=== PATIENT | female | born 1980 | race Two or more races ===

== ENCOUNTER 2024-05-24 10:16 | Emergency (ER) | payer MEDICAID, SELFPAY ==
[2024-05-24 10:25] VITALS: BP 129/82; PULSE 69; RESP 16; TEMP 36.6; O2SAT 100; BMI 28.3
--- NOTE | 2024-05-24 10:32 | XR_ITS ---
Examination: CT brain head without contrast. 2-D sagittal coronal reconstructions Date and time of exam:May 24, 2024 1059 hrs. Indications: Headaches blurred vision today CTDI: vol (mGy):48.6 DLP: (mGycm):919 Technique: Multiple CT axial sections of the brain have been obtained, 5 mm slice thickness. Contrast has not been administered. 2-D sagittal, coronal reconstructions have been obtained Low dose protocols were performed. One or more of the following dose reduction techniques were used; automated exposure control, adjustment of the mA and/or KV according to patient size, use of iterative reconstruction technique. Findings: No significant ventricular enlargement. Intra-axial or extra-axial hemorrhage density is not seen. No mass effect or midline shift Basal cisterns are not remarkable. Fourth ventricle is midline. Cranial vault intact. Impression: Negative for acute hemorrhage, mass effect or midline shift Advise clinical correlation follow-up accordingly
--- NOTE | 2024-05-24 10:32 | EKG_ITS ---
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
--- NOTE | 2024-05-24 10:32 | XR_ITS ---
Examination: PA lateral chest 2 views Technique: Upright PA lateral chest 2 views Exam date and time: May 24, 2024 1052 hrs. Indications: Blurred vision headaches today Findings: Normal heart size. Lungs are clear. The osseous structures are intact Impression: No active disease
--- NOTE | 2024-05-24 10:32 | PD.EDRME ---
Rapid Medical Screening Exam RME Arrival date/time: 05/24/24 10:16 Patient presents the emergency department complains of headache and dizziness Chief Complaint: Headache Time Seen by Provider: 05/24/24 10:19 Vital signs: Vital Signs Temperature 97.9 F 05/24/24 10:25 Pulse Rate 69 05/24/24 10:25 Respiratory Rate 16 05/24/24 10:25 Blood Pressure 129/82 05/24/24 10:25 Pulse Oximetry (%) 100 05/24/24 10:25 Oxygen Delivery Method Room Air 05/24/24 10:25
[2024-05-24 11:23] LABS: Basophils % (Auto) 0 % (0-2.5); Eosinophils # (Auto) 0.3 Thou/mm3 (0.0-0.5); Eosinophils % (Auto) 4 % (0-10); Hematocrit 42.3 % (36.0-46.0); Hemoglobin 14.6 g/dL (12.0-16.0); Immature Granulocytes % (Auto) 0 % (0-0); Immature Granulocytes Auto 0.02 Thou/mm3 (0.00-0.00); Lymphocytes # (Auto) 2.1 Thou/mm3 (1.0-4.8); Lymphocytes % (Auto) 31 % (10-50); Mean Corpuscular HGB Conc 34.5 g/dl (31.0-37.0); Mean Corpuscular Hemoglobin 31.9 pg (25.0-35.0); Mean Corpuscular Volume 92 fL (80-100); Monocytes # (Auto) 0.3 Thou/mm3 (0.0-0.8); Monocytes % (Auto) 4 % (0-12); Neutrophils % (Auto) 59 % (37-80); Nucleated Red Blood Cell % 0 /100 WBC (0); Platelet Count 303 Thou/mm3 (140-440); RDW Standard Deviation 40.3 fL (36.4-46.3); Red Blood Count 4.58 Miln/mm3 (4.00-5.20); White Blood Count 6.8 Thou/mm3 (3.6-11.0)
[2024-05-24 11:38] LABS: HCG,Qualitative Serum Negative
[2024-05-24 11:43] LABS: Alanine Aminotransferase 15 U/L (10-49); Albumin, Serum 4.3 gm/dL (3.5-5.0); Alkaline Phosphatase 52 U/L (46-116); Anion Gap 6 (7-16); Aspartate Amino Transferase 13 U/L (0-34); BUN/Creatinine Ratio 11 Ratio (12-20); Bilirubin,Total 0.5 mg/dL (0.3-1.2); Blood Urea Nitrogen 10 mg/dL (9-23); Calcium 9.4 mg/dL (8.3-10.6); Calcium (Corrected) 9.4 mg/dL (8.5-10.1); Carbon Dioxide 28.8 mMol/L (20.0-31.0); Chloride 104 mMol/L (98-107); Creatinine (Component) 0.9 mg/dL (0.6-1.3); Estimated Creatinine Clearance 83.6 mL/min (>60); Globulin 2.2 gm/dL (2.3-3.5); Glucose 108 mg/dL (74-106); Osmolality,Calculated 277 (275-295); Potassium 4.5 mMol/L (3.4-5.1); Sodium 139 mMol/L (136-145); Total Protein 6.5 gm/dL (5.7-8.2); Troponin I < 0.002 ng/mL (0.0-0.045); eGFR > 60 See Note
--- NOTE | 2024-05-24 11:49 | EDNOTE_ITS ---
<Statement entered by Jeannie Dean MD - 05/24/24 16:22> As co-signing physician, I was present and available for consult prn. I concur with the plan and care as documented by the midlevel provider. ED General RME/HPI General Chief complaint: Headache Stated complaint: TAYLOR, BLURRY VISION, DIZZINESS Time Seen by Provider: 05/24/24 10:19 Arrival date/time: 05/24/24 10:16 CC: Headache blurred vision sore throat difficulty swallowing nausea HPI ongoing for the past 2 days denies any nausea chest pain shortness of breath or difficulty breathing. Patient is awake alert oriented with stable vital signs. Appears not in any acute distress. RME / HPI RME / HPI narrative: 05/24/24 10:16 Patient presents the emergency department complains of headache and dizziness Related Data Home Medications ?Medication ?Instructions ?Recorded ?Confirmed Cholecalciferol * (VITAMIN D3 *) 3,000 unit PO QDAY #0 tabs 12/03/14 Citalopram Hydrobromide * (CELEXA 20 mg PO QDAY #0 tabs 12/03/14 *) lorazepam 0.5 mg tablet 0.5 mg PO BID #0 tabs 12/03/14 estradiol 0.06 mg/24 hr weekly 1 patch TOP Q7D #0 ea 05/03/15 transdermal patch (Climara) progesterone micronized 100 mg 100 mg PO QDAY #0 caps 05/03/15 capsule (Prometrium) Previous Rx's ?Medication ?Instructions ?Recorded norvasc 2.5mg 1 tab PO daily #30 tabs 05/03/15 Hydrocodone/Acetaminophen * (NORCO 1 tab PO BID PRN PAIN #10 tabs 08/20/15 5/325 *) ibuprofen 600 mg tablet 600 mg PO Q8HR PRN PAIN #30 tabs 02/29/16 ibuprofen 600 mg tablet 600 mg PO Q6HR PRN PAIN #25 tabs 02/18/17 naproxen 375 mg tablet 375 mg PO BIDWM PRN pain #25 tabs 05/23/17 levofloxacin 500 mg tablet 500 mg PO QDAY #6 tabs 08/10/22 cephalexin 500 mg capsule 500 mg PO QID #40 caps 12/19/22 metoclopramide HCl 10 mg tablet 10 mg PO Q6H PRN nausea and 10/25/23 (Reglan) vomiting #14 tabs Allergies Allergy/AdvReac Type Severity Reaction Status Date / Time lisinopril Allergy Unknown Verified 10/25/23 14:19 Review of Systems Review of Systems Narrative Review of Systems: GEN: No fever, no chills, no weight loss EYES: No discharge, no visual changes, no pain HEENT: No ear pain, no congestion, + sore throat PULM: No shortness of breath, no cough, no congestion CV: No chest pain, no dyspnea on exertion, no palpitations GI: No nausea, no vomiting, no diarrhea, no pain, no constipation : No frequency, no urgency, no dysuria MUSC/SKEL: No joint pain, no back pain SKIN: No rash PSYCH: No hallucinations, no depression HEME/LYMPH: No easy bleeding or bruising tendencies NEURO: No weakness, + headache Past Medical History Past Medical History CARDIAC: Positive Hypercholesterolemia and Hypertension; Negative Congestive Heart Failure RESPIRATORY: Negative Chronic Obstructive Pulmonary Disease (COPD) GASTROINTESTINAL: Positive Gall Bladder Disease GENITOURINARY: Negative Renal Disease REPRODUCTIVE: Positive Previous Pregnancies MUSCULOSKELETAL: Positive Carpal Tunnel Syndrome and Fibromyalgia ENDOCRINE: Positive Diabetes Mellitus Type 2 and Systemic Lupus Erythematosus; Negative Diabetes Mellitus Type 1 PSYCHO/SOCIAL: Positive Bipolar Disorder and Depression OTHER HISTORY: Positive Autoimmune Disease, Blood Transfusions and Anesthesia Reactions (lupus) Surgical History SURGICAL: Positive Abdominal Surgery, Hysterectomy, Tubal Ligation and Section Social History SMOKING STATUS: Never smoker SUBSTANCE USE: does not use ED Exam Narrative Physical exam: [General: Not in any acute distress Head normocephalic HEENT: Eyes pupils are PERRLA EOMs are intact no injected conjunctiva nose no rhinorrhea mouth pink moist membranes uvula is midline swallow symmetrical phonation is normal all the subsystems of HEENT within acceptable limits Neck is supple nontender Chest equal chest rise nontender to palpation Respiratory: Clear to auscultation no wheezes crackles or rubs CV: Rate rhythm is regular no murmurs rubs or clicks Abdomen is soft nontender no masses positive bowel sounds all 4 quadrants Back: No CVA tenderness no spinous process tenderness from cervical spine thoracic and lumbar spine Skin: Intact no petechiae rash induration ulceration or crepitus Extremities: Moving all extremity against resistance cap refill less than 2 seconds neurosensory intact Neuro: Awake alert oriented x3 Glascow coma 15 no focal deficits] Course Quality Measures none Orders Category Date Time Status Bedside Blood Glucose NOW Care 05/24/24 10:28 Active Bedside Influenza A&B Antigen Test NOW Care 05/24/24 11:53 Active EKG (ED ONLY) *Do not use* NOW Care 05/24/24 10:32 Completed Saline [Insert IV] NOW Care 05/24/24 11:[address] head/brain wo con Stat Exams 05/24/24 10:32 Completed EKG (ED Only) Stat Exams 05/24/24 10:32 Ordered XR chest 2V Stat Exams 05/24/24 10:32 Completed CBC Stat Lab 05/24/24 11:10 Completed Comprehensive Metabolic Panel Stat Lab 05/24/24 11:10 Completed Drug Screen,Urine Stat Lab 05/24/24 11:21 Completed HCG,Qualitative Serum Stat Lab 05/24/24 11:10 Completed Troponin I Stat Lab 05/24/24 11:10 Completed Ketorolac Inj [Toradol Inj] Med 05/24/24 11:52 Discontinued 15 mg IVP X1 ONE Sodium Chloride 0.9% 500 ml [Ns] 500 ml Med 05/24/24 11:53 Discontinued IV 999 mls/hr Vital Signs Vital signs: Vital Signs Temperature 97.9 F 05/24/24 10:25 Pulse Rate 69 05/24/24 10:25 Respiratory Rate 16 05/24/24 10:25 Blood Pressure 129/82 05/24/24 10:25 Pulse Oximetry (%) 100 05/24/24 10:25 Oxygen Delivery Method Room Air 05/24/24 10:[address] [facility] Patient data External records reviewed:: [facility] previous records Clinical information provided by:: patient Social determinants that could affect healthcare access:: none Patient has the following chronic illnesses:: Diabetic How is presenting disease/condition affected by chronic disease/condition?: u neffected by Evaluation data The following diagnostics were reviewed and interpreted by me:: lab results and radiology exam(s) Lab and/or radiology exams considered but not ordered:: CT of the head is interpreted by me read by radiologist negative for any acute finding CMP shows no acute electrolyte imbalances renal impairment transaminitis or T. bili elevation CBC shows no acute leukocytosis anemia thrombocytopenia. Troponin is negative BMP is negative EKG performed at 1054 shows a ventricular rate of 72 FL interval 147 QRS of 9 5 QTc of 424 this sinus rhythm. He is positive for cocaine. Interpretation Summary: At 1400 patient states his symptoms have improved but not resolved. Patient was informed that she is positive for cocaine, patient's must have been on my money . Will discharge the patient home for follow-up with her primary care provider. Medications Medications considered but not ordered:: None Medication administrations:: Medication Administration History Discontinued Medications Sodium Chloride (Ns) 500 mls @ 999 mls/hr IV .Q31M ONE Stop: 05/24/24 12:23 Last Admin: 05/24/24 12:27 Dose: 999 mls/hr Documented By: ED Ketorolac Tromethamine (Ketorolac Inj 30 Mg/Ml Vial) 15 mg IVP X1 ONE Stop: 05/24/24 11:53 Last Admin: 05/24/24 12:28 Dose: 15 mg Documented By: ED None Consultations Consultation(s) initiated? (list below): No Diagnosis Differential Diagnosis ED Complaint MDM: Intercerebral hemorrhage complex migraine tension headache Most likely diagnosis given after review of the tests above:: Headache cocaine use Admission Indicated Admission indicated?: not indicated Explain why admission is indicated or not indicated:: Stable for outpatient follow-up Admission Request Was there a request for admission?: No Disposition Plan Disposition Plan: Discharge Discharge Attestation Discharge Attestation: The patient and all family members were given an opportunity to ask questions and understood the discharge instructions. Discharge instructions specifically effects, indications for sooner follow up or return to the emergency department, and the expected course of current diagnosis. Patient condition: Stable Medical Decision Making Differential Diagnosis Differential Diagnosis: Intercerebral hemorrhage complex migraine tension headache Lab Data 05/24/24 11:10 05/24/24 11:10 Labs: Lab Results 05/24/24 05/24/24 Range/Units 11:10 11:21 WBC 6.8 (3.6-11.0) Thou/mm3 RBC 4.58 (4.00-5.20) Miln/mm3 Hgb 14.6 (12.0-16.0) g/dL Hct 42.3 (36.0-46.0) % MCV 92 (80-100) fL MCH 31.9 (25.0-35.0) pg MCHC 34.5 (31.0-37.0) g/dl RDW Std Deviation 40.3 (36.4-46.3) fL Plt Count 303 (140-440) Thou/mm3 Neut % (Auto) 59 (37-80) % Lymph % (Auto) 31 (10-50) % [place] % (Auto) 4 (0-12) % Eos % (Auto) 4 (0-10) % Baso % (Auto) 0 (0-2.5) % Neut # (Auto) 4.0 (1.8-7.7) Thou/mm3 Lymph # (Auto) 2.1 (1.0-4.8) Thou/mm3 [place] # (Auto) 0.3 (0.0-0.8) Thou/mm3 Eos # (Auto) 0.3 (0.0-0.5) Thou/mm3 Baso # (Auto) 0.0 (0.0-0.2) Thou/mm3 Immature Gran # (Auto) 0.02 H (0.00-0.00) Thou/mm3 Absolute Nucleated RBC 0.00 (0.00-0.00) Thou/mm3 Immature Gran % 0 (0-0) % Nucleated RBC % 0 (0) /100 WBC Sodium 139 (136-145) mMol/L Potassium 4.5 (3.4-5.1) mMol/L Chloride 104 (98-107) mMol/L Carbon Dioxide 28.8 (20.0-31.0) mMol/L Anion Gap 6 L (7-16) BUN 10 (9-23) mg/dL Creatinine 0.9 (0.6-1.3) mg/dL Estim Creat Clear Calc 83.6 (>60) mL/min eGFR > 60 (60 - ) See Note BUN/Creatinine Ratio 11 L (12-20) Ratio Glucose 108 H (74-106) mg/dL Calculated Osmolality 277 (275-295) Calcium 9.4 (8.3-10.6) mg/dL Corrected Calcium 9.4 (8.5-10.1) mg/dL Total Bilirubin 0.5 (0.3-1.2) mg/dL AST 13 (0-34) U/L ALT 15 (10-49) U/L Alkaline Phosphatase 52 (46-116) U/L Troponin I < 0.002 (0.0-0.045) ng/mL Total Protein 6.5 (5.7-8.2) gm/dL Albumin 4.3 (3.5-5.0) gm/dL Globulin 2.2 L (2.3-3.5) gm/dL Albumin/Globulin Ratio 2.0 (1.2-2.2) HCG, Qual Negative Urine Opiates Screen Negative (Negative) Urine Fentanyl Screen Negative (Negative) Ur Barbiturates Screen Negative (Negative) U Amphetamin/Meth Scrn Negative (Negative) U Benzodiazepines Scrn Negative (Negative) U Cocaine Metab Screen Positive A (Negative) U Marijuana (THC) Screen Negative (Negative) Discharge Plan Plan Patient Disposition: HOME (Self Care) Patient condition on transfer: Stable Prescriptions/Referrals Prescriptions/Med Rec: No Action lorazepam 0.5 MG tablet 0.5 mg PO BID Qty: 0 Cholecalciferol * (VITAMIN D3 *) 3 000 tablet 3,000 unit PO QDAY Qty: 0 Citalopram Hydrobromide * (CELEXA *) 20 MG tablet 20 mg PO QDAY Qty: 0 progesterone micronized [Prometrium] 100 MG capsule 100 mg PO QDAY Qty: 0 estradiol [Climara] 1 PATCH.WK patch weekly 1 patch TOP Q7D Qty: 0 norvasc 2.5mg 1 tab PO daily Qty: 30 0RF Hydrocodone/Acetaminophen * (NORCO 5/325 *) 1 TAB tablet 1 tab PO BID PRN (Reason: PAIN) Qty: 10 0RF Rx Instructions: FOR PAIN ibuprofen 600 MG tablet 600 mg PO Q8HR PRN (Reason: PAIN) Qty: 30 0RF ibuprofen 600 MG tablet 600 mg PO Q6HR PRN (Reason: PAIN) Qty: 25 0RF naproxen 375 MG tablet 375 mg PO BIDWM PRN (Reason: pain) Qty: 25 0RF cephalexin 500 mg capsule 500 mg PO QID Qty: 40 0RF levofloxacin 500 mg tablet 500 mg PO QDAY Qty: 6 0RF metoclopramide HCl [Reglan] 10 mg tablet 10 mg PO Q6H PRN (Reason: nausea and vomiting) Qty: 14 0RF Referrals: Greg Gonzalez MD [Primary Care Provider] - In 1 week Problem List Clinical Impression: Headache, Cocaine abuse Patient/Caregiver Discharge Instructions Education Materials: Self-Care for Headaches, Cocaine: Understanding Its Effects Print Language: Martiniquais Stand Alone Forms: [employer]ent[employer] Info., Patient Portal Info Letter, Work/School Release PA/ENTRY TABLE OPERATOR Supervising Physician PA/ENTRY TABLE OPERATOR Supervising Physician: Marc Colbert ENP
[2024-05-24 11:52] LABS: Amphetamine/Methamp Scrn,U Negative (Negative); Barbiturate Screen,Urine Negative (Negative); Benzodiazepines Screen,Urine Negative (Negative); Benzoylecgonine Screen, Ur Positive (Negative); Fentanyl Screen,Urine Negative (Negative); Opiate Screen,Urine Negative (Negative); THC Screen,Urine Negative (Negative)
--- NOTE | 2024-05-24 12:07 | PC.NURSE ---
Pt. here from home to bed 7 for TAYLOR X 2 days, pt. states today she started with blurry vision, pt. states she has nausea but no vomiting. Pt. states it is hard for her to swallow. No s/s of distress.
[2024-05-24] MEDS: SODIUM CHLORIDE 0.9% 500 ML 500 ML 999 ML IV (12:27)
[2024-05-24] MEDS: KETOROLAC INJ 30 MG/ML VIAL 15 MG IVP (12:28)
[2024-05-24 12:53] VITALS: BP 129/80; PULSE 76; RESP 18; TEMP 36.7; O2SAT 98
[2024-05-24 14:00] VITALS: BP 130/86; PULSE 87; RESP 18; TEMP 36.8; O2SAT 95
[2024-05-24 14:47] VITALS: BP 138/93; PULSE 93; RESP 17; TEMP 36.9; O2SAT 98
== END 2024-05-24 14:52 | disposition home or self-care (01) ==
PROVIDERS: Nurse Practitioner Primary Care; Emergency Provider Emergency Medicine; PCP Family Medicine
DX: R51.9 Headache, unspecified (principal); F14.10 Cocaine abuse, uncomplicated; H53.8 Other visual disturbances; R94.31 Abnormal electrocardiogram [ECG] [EKG]; E78.00 Pure hypercholesterolemia, unspecified; I10 Essential (primary) hypertension
CPT/HCPCS: 36415; 70450; 71046; 80053; 80307; 84484; 84703; 85025; 93005; 96361; 96374; 99284; J1885; J7040

== ENCOUNTER → 2024-07-27 | Outpatient (CLI) | payer MEDICAID, SELFPAY ==
--- NOTE | 2024-07-27 10:36 | XR_ITS ---
Examination: Sinus series 4 views Technique: Emily Barakat lateral submentovertex sinus series 4 views Exam date and time: July 27, 2024 1109 hours Indications: Sinus pressure and pain months Findings: Opacity involves the frontal ethmoid air cells Mucosal thickening up to 6 mm in the maxillary antra Prominent hypertrophy inferior nasal turbinates Subtle opacity in the sphenoid air cells Normal epiglottis No fluid levels Impression: Chronic pansinusitis
== END | disposition home or self-care (01) ==
LOC: CDIM 10:12
PROVIDERS: Referring Provider Family Medicine; Visit Provider Family Medicine
DX: J32.4 Chronic pansinusitis (principal)
CPT/HCPCS: 70220

== ENCOUNTER 2025-01-01 17:52 | Emergency (ER) | payer MEDICAID, SELFPAY ==
[2025-01-01 17:53] VITALS: BMI 28.3
[2025-01-01 18:09] VITALS: BP 115/75; PULSE 87; RESP 18; TEMP 36.7; O2SAT 100
--- NOTE | 2025-01-01 19:36 | XR_ITS ---
Examination: Foot, left, 3 views Technique: AP, oblique, lateral views foot, 3 views Date and time of exam: January 01, 20252020 hours INDICATIONS: Injury to the foot today, foot pain FINDINGS: No acute fracture No dislocation No foreign body IMPRESSION: No acute fracture
[2025-01-01] MEDS: IBUPROFEN TAB 600 MG TABLET PO (20:41)
--- NOTE | 2025-01-01 21:52 | PD.EDANKLE ---
Lower Extremity Injury RME/HPI General Chief Complaint: Ankle/Foot Injury Stated Complaint: L) FOOT INJURY 02/07 Time Seen by Provider: 01/01/25 18:13 Arrival date/time: 01/01/25 17:52 RME / HPI RME / HPI Narrative: 44-year-old female presents to the ED with a complaint of left foot pain secondary to an injury she sustained at home. Patient states she was removing a bench when it fell over landing on her left foot. She is unable to bear weight. She does have some mild numbness to her toes. Related Data Home Medications ?Medication ?Instructions ?Recorded ?Confirmed Cholecalciferol * (VITAMIN D3 *) 3,000 unit PO QDAY #0 tabs 12/03/14 Citalopram Hydrobromide * (CELEXA 20 mg PO QDAY #0 tabs 12/03/14 *) lorazepam 0.5 mg tablet 0.5 mg PO BID #0 tabs 12/03/14 estradiol 0.06 mg/24 hr weekly 1 patch TOP Q7D #0 ea 05/03/15 transdermal patch (Climara) progesterone micronized 100 mg 100 mg PO QDAY #0 caps 05/03/15 capsule (Prometrium) Previous Rx's ?Medication ?Instructions ?Recorded norvasc 2.5mg 1 tab PO daily #30 tabs 05/03/15 Hydrocodone/Acetaminophen * (NORCO 1 tab PO BID PRN PAIN #10 tabs 08/20/15 5/325 *) ibuprofen 600 mg tablet 600 mg PO Q8HR PRN PAIN #30 tabs 02/29/16 ibuprofen 600 mg tablet 600 mg PO Q6HR PRN PAIN #25 tabs 02/18/17 naproxen 375 mg tablet 375 mg PO BIDWM PRN pain #25 tabs 05/23/17 levofloxacin 500 mg tablet 500 mg PO QDAY #6 tabs 08/10/22 cephalexin 500 mg capsule 500 mg PO QID #40 caps 12/19/22 metoclopramide HCl 10 mg tablet 10 mg PO Q6H PRN nausea and 10/25/23 (Reglan) vomiting #14 tabs meloxicam 7.5 mg tablet 7.5 mg PO QDAY PRN pain #10 tabs 01/01/25 Allergies Allergy/AdvReac Type Severity Reaction Status Date / Time lisinopril Allergy Severe Hives Verified 01/01/25 17:57 Review of Systems Review of Systems Systems Reviewed: All systems reviewed, normal except as documented Past Medical History Past Medical History CARDIAC: Positive Hypercholesterolemia and Hypertension; Negative Congestive Heart Failure RESPIRATORY: Negative Chronic Obstructive Pulmonary Disease (COPD) GASTROINTESTINAL: Positive Gall Bladder Disease GENITOURINARY: Negative Renal Disease REPRODUCTIVE: Positive Previous Pregnancies MUSCULOSKELETAL: Positive Carpal Tunnel Syndrome and Fibromyalgia ENDOCRINE: Positive Diabetes Mellitus Type 2 and Systemic Lupus Erythematosus; Negative Diabetes Mellitus Type 1 PSYCHO/SOCIAL: Positive Bipolar Disorder and Depression OTHER HISTORY: Positive Autoimmune Disease, Blood Transfusions and Anesthesia Reactions (lupus) Surgical History SURGICAL: Positive Abdominal Surgery, Hysterectomy, Tubal Ligation and Section Social History SMOKING STATUS: Never smoker SUBSTANCE USE: does not use ED Exam Narrative Physical exam: A&O, afebrile and non-toxic appearing 44-year-old female, mild acute pain distress. Lung are clear, RRR, Abdomen is non-distended. No tenderness to the tibia or fibula, no tenderness to the medial or lateral malleolus no pain with plantarflexion/dorsiflexion. No pain with inversion/eversion of the left ankle. Positive tenderness, ecchymosis and localized swelling to the proximal metatarsals and tarsal area. CMS intact distally. Moves all other extremities well. Course Course Course Narrative: Patient was given ibuprofen 600 mg p.o. XR left foot reveals no acute fracture or dislocation. Patient's foot and ankle were wrapped with an Ryan wrap and patient was fitted with a pair of crutches. Quality Measures none Orders Category Date Time Status Crutches .NOW Care 01/01/25 21:51 Ordered ryan wrap [Splint / Immobilizer] STAT Care 01/01/25 21:51 Ordered XR foot comp LT min 3V Stat Exams 01/01/25 19:36 Completed Ibuprofen Tab [Motrin Tab] Med 01/01/25 19:36 Discontinued 600 mg PO X1 ONE Vital Signs Vital signs: Vital Signs Temperature 98.1 F 01/01/25 18:09 Pulse Rate 87 01/01/25 18:09 Respiratory Rate 18 01/01/25 18:09 Blood Pressure 115/75 01/01/25 18:09 Pulse Oximetry (%) 100 01/01/25 18:09 Oxygen Delivery Method Room Air 01/01/25 18:09 Extremity Injury, Lower MDM Narrative MDM Narrative:: Symptoms, exam and diagnostic studies are consistent with: Left foot contusion Patient was discharged home in stable condition. Patient/family advised to follow-up with their PCP in 24-48 hours. Encouraged to return to the ED for any new or worsening symptoms. Patient data External records reviewed:: None Clinical information provided by:: patient Social determinants that could affect healthcare access:: none Patient has the following chronic illnesses:: Hypertension How is presenting disease/condition affected by chronic disease/condition?: uneffected by Evaluation data The following diagnostics were reviewed and interpreted by me:: radiology exam(s) Lab and/or radiology exams considered but not ordered:: N/A Interpretation Summary: As noted above Medications / Prescriptions Medications or Prescriptions considered but not ordered:: N/A Medication administrations:: Medication Administration History Discontinued Medications Ibuprofen (Ibuprofen Tab 600 Mg Tablet) 600 mg PO X1 ONE Stop: 01/01/25 19:37 Last Admin: 01/01/25 20:41 Dose: 600 mg Documented By: As noted above Consultations Consultation(s) initiated? (list below): No Diagnosis Extremity Injury, Lower Differential Diagnosis: ankle sprain and strain, fracture of toe, ankle fracture and other (Foot fracture versus foot contusion) Most likely diagnosis given after review of the tests above:: Left foot contusion. Admission Indicated Admission indicated?: not indicated Explain why admission is indicated or not indicated:: Patient is stable for discharge. Admission Request Was there a request for admission?: No Admission Attestation Admission request attestation: N/A Disposition Plan Disposition Plan: Discharge Discharge Attestation Discharge Attestation: The patient and all family members were given an opportunity to ask questions and understood the discharge instructions. Discharge instructions specifically effects, indications for sooner follow up or return to the emergency department, and the expected course of current diagnosis. Patient condition: Stable Discharge Plan Plan Patient Disposition: HOME (Self Care) Discharge Disposition comment: Stable Prescriptions/Referrals Prescriptions/Med Rec: New meloxicam 7.5 mg tablet 7.5 mg PO QDAY PRN (Reason: pain) Qty: 10 0RF No Action lorazepam 0.5 MG tablet 0.5 mg PO BID Qty: 0 Cholecalciferol * (VITAMIN D3 *) 3 000 tablet 3,000 unit PO QDAY Qty: 0 Citalopram Hydrobromide * (CELEXA *) 20 MG tablet 20 mg PO QDAY Qty: 0 progesterone micronized [Prometrium] 100 MG capsule 100 mg PO QDAY Qty: 0 estradiol [Climara] 1 PATCH.WK patch weekly 1 patch TOP Q7D Qty: 0 norvasc 2.5mg 1 tab PO daily Qty: 30 0RF Hydrocodone/Acetaminophen * (NORCO 5/325 *) 1 TAB tablet 1 tab PO BID PRN (Reason: PAIN) Qty: 10 0RF Rx Instructions: FOR PAIN ibuprofen 600 MG tablet 600 mg PO Q8HR PRN (Reason: PAIN) Qty: 30 0RF ibuprofen 600 MG tablet 600 mg PO Q6HR PRN (Reason: PAIN) Qty: 25 0RF naproxen 375 MG tablet 375 mg PO BIDWM PRN (Reason: pain) Qty: 25 0RF cephalexin 500 mg capsule 500 mg PO QID Qty: 40 0RF levofloxacin 500 mg tablet 500 mg PO QDAY Qty: 6 0RF metoclopramide HCl [Reglan] 10 mg tablet 10 mg PO Q6H PRN (Reason: nausea and vomiting) Qty: 14 0RF Referrals: Greg Gonzalez MD [Primary Care Provider] - In 1 week Problem List Clinical Impression: Contusion of left foot Patient/Caregiver Discharge Instructions Education Materials: ED Foot Contusion Additional Instructions: Ice and elevate the left foot to reduce swelling and pain. Use the Ryan wrap and crutches to protect the foot from further injury until you are able to bear weight. Follow-up with your primary care physician in 24 to 48 hours. Return to the ED for any new or worsening symptoms. Print Language: Colombian Stand Alone Forms: Sofi Award Info., Patient Portal Info Letter PA/BREAKER UNIT ASSEMBLER Supervising Physician PA/BREAKER UNIT ASSEMBLER Supervising Physician: Dr Russ
[2025-01-01 22:52] VITALS: BP 125/86; PULSE 71; RESP 19; TEMP 36.6; O2SAT 98
== END 2025-01-01 23:05 | disposition home or self-care (01) ==
PROVIDERS: Emergency Provider Emergency Medicine; PCP Family Medicine
DX: S90.32XA Contusion of left foot, initial encounter (principal); W20.8XXA Other cause of strike by thrown, projected or falling object, initial encounter; Y93.89 Activity, other specified; Y92.009 Unspecified place in unspecified non-institutional (private) residence as the place of occurrence of the external cause
CPT/HCPCS: 73630; 99283; A9270

== ENCOUNTER → 2025-01-16 | Outpatient (CLI) | payer MEDICAID, SELFPAY ==
--- NOTE | 2025-01-16 09:19 | XR_ITS ---
Examination: Foot, left, 3 views Technique: AP, oblique, lateral views foot, 3 views Date and time of exam: January 16, 2025 0932 hours INDICATIONS: Patient dropped a with the end on foot January 01, 2025 with foot pain FINDINGS: No acute fracture. No dislocation No foreign body IMPRESSION: No acute fracture
== END | disposition home or self-care (01) ==
LOC: CDIM 08:59
PROVIDERS: PCP Family Medicine; Referring Provider Family Medicine; Visit Provider Family Medicine
DX: M79.672 Pain in left foot (principal)
CPT/HCPCS: 73630